=== PATIENT | male | born 1965 | race Caucasian/White ===

== ENCOUNTER → 2017-11-08 | Outpatient (CLI) | payer BC ==
--- NOTE | 2017-11-08 12:49 | Diagnostic Imaging Report ---
INDICATION: Fall with back pain. TECHNIQUE: AP and lateral views of the lumbar spine were obtained. FINDINGS: The lumbar vertebrae are normal in height and alignment. There is no fracture or subluxation. The disc spaces are normal in height. IMPRESSION: Negative lumbar spine. Dictated by: Dictated on workstation # [id number]
== END ==
LOC: RAD 09:59
PROVIDERS: ATTEND Family Medicine
DX: M54.16 Radiculopathy, lumbar region (principal); W19.XXXA Unspecified fall, initial encounter
CPT/HCPCS: 72100

== ENCOUNTER 2021-04-10 09:44 | Emergency (ER) | payer BC ==
[~2021-04-10] VITALS: Ht 177 cm; Wt 77.1 kg
--- NOTE | 2021-04-10 10:03 | ED Lower Extremity ---
General Stated Complaint: R LEG PAIN Source: patient Exam Limitations: no limitations History of Present Illness Date Seen by Provider: Apr 10, 2021 Time Seen by Provider: 09:50 Initial Comments Patient is a 55-year-old male who presents to the emergency department today with a chief complaint of right lower extremity pain. Patient has a history of muscular dystrophy and is wheelchair-bound but is able to stand for transfers. Patient states that he was trying to transfer out of his wheelchair last night when his right leg gave out and he fell to the ground. Patient states that he fell onto his right leg. He states he has had some proximal outer right lower extremity pain just below the knee since the fall. No other complaints of injury. Did not hit his head or have a loss of consciousness. No hip pain back pain or neck pain. Denies numbness to the right lower extremity. Tender to palpation in the right lower leg just distal to the knee on the lateral aspect. All other review of systems reviewed and negative except as stated above. Onset: yesterday Pain/Injury Location: right leg, right knee Method of Injury: fell Modifying Factors: Improves With Immobilization; Worse With Movement Allergies and Home Medications Patient Home Medication List Home Medication List Reviewed: Yes Review of Systems Constitutional: see HPI Respiratory: no symptoms reported Cardiovascular: no symptoms reported Gastrointestinal: no symptoms reported Genitourinary: no symptoms reported Musculoskeletal: joint pain (right knee), other (RLE pain just distal to the knee on the lateral aspect) All Other Systems Reviewed Negative Unless Noted: Yes Physical Exam Vital Signs Vital Signs - First Documented 04/10/21 09:50 Temp 36.0 Pulse 82 Resp 18 B/P (MAP) 167/103 (124) Pulse Ox 96 O2 Delivery Room Air Capillary Refill : Height, Weight, BMI Height: '" Weight: lbs. oz. kg; BMI Method: General Appearance: WD/WN Cardiovascular: regular rate, rhythm Respiratory: normal breath sounds, no respiratory distress, no accessory muscle use Hips: bilateral hip non-tender Legs: left leg non-tender, left leg normal inspection, left leg normal range of motion, left leg no evidence of injury; right leg bone tenderness (lateral knee pain over the joint line and just distal; mild to moderate swelling noted just distal to the knee. no overlying erythema or ecchymoses) Knees: left knee non-tender, left knee normal inspection, left knee normal range of motion, left knee no evidence of injury; right knee bone tenderness (lateral joint line) Ankles: bilateral ankle non-tender, bilateral ankle normal inspection, bilateral ankle normal range of motion, bilateral ankle no evidence of injury Feet: bilateral foot non-tender, bilateral foot normal inspection, bilateral foot normal range of motion, bilateral foot no evidence of injury Neurologic/Psychiatric: alert, normal mood/affect Skin: normal color, warm/dry Progress/Results/Core Measures Results/Orders My Orders Orders - TOMASZ LARES MD Tibia/Fibula, Right, 2 Views (04/10/21 09:58) Knee, Right, 3 Views (04/10/21 09:58) Vital Signs/I&O 04/10/21 09:50 Temp 36.0 Pulse 82 Resp 18 B/P (MAP) 167/103 (124) Pulse Ox 96 O2 Delivery Room Air Diagnostic Imaging Diagonstic Imaging: Xray Comments [facility], [place] NAME: NORM GAXIOLA [facility] REC#: [id number] PT STATUS: REG ER : 1965 PHYSICIAN: TOMASZ LARES MD ADMIT DATE: 04/10/21/ER Signed Date of Exam:04/10/21 TIBIA/FIBULA, RIGHT, 2 VIEWS Indication: Right leg pain AP and lateral views of the right tibia-fibula show no fracture, dislocation or other acute abnormalities. IMPRESSION: Negative right tibia and fibula Dictated by: Dictated on workstation # [id number] Dict: 04/10/21 1052 Trans: 04/10/21 1053 [facility] [id number] Interpreted by: RASHEED TOLLIVER MD Electronically signed by: RASHEED TOLLIVER MD 04/10/21 1053 Departure Impression Primary Impression: Pain of right lower extremity Disposition: 01 HOME, SELF-CARE Condition: Stable Departure-Patient Inst. Decision time for Depature: 11:01 Referrals: EDEL POOL MD (PCP/Family) Primary Care Physician Patient Instructions: Contusion (DC) Add. Discharge Instructions: You can take [id number] Tylenol and/or ibuprofen as needed for pain. Alternate heat and ice to the right lower extremity at the area of most soreness. Follow-up with your primary care physician. Return to the emergency room for any new, concerning or emergent complaints. TOMASZ LARES MD Apr 10, 2021 10:03
--- NOTE | 2021-04-10 10:54 | Diagnostic Imaging Report ---
Indication: Right leg pain AP and lateral views of the right tibia-fibula show no fracture, dislocation or other acute abnormalities. IMPRESSION: Negative right tibia and fibula Dictated by: Dictated on workstation # [id number]
--- NOTE | 2021-04-10 10:54 | Diagnostic Imaging Report ---
EXAMINATION: Right knee radiographs, 3 views. COMPARISON: None. HISTORY: 55-year-old male, right knee pain. FINDINGS: There is no identified acute fracture. There is no knee joint effusion. There are vascular related calcifications. The joint spaces appear well preserved. There is no identified radiopaque foreign body. IMPRESSION: 1. Grossly unremarkable radiographs of the right knee. Dictated by: Dictated on workstation # [id number]
[2021-04-10 11:11] VITALS: BP 134/101
== END 2021-04-10 11:10 | disposition home or self-care (01) ==
LOC: EDUNIT# 09:44 → ER 09:47
DX: M79.661 Pain in right lower leg (principal)
CPT/HCPCS: 73562; 73590

== ENCOUNTER 2021-09-03 09:53 | Outpatient (CLI) | payer BC ==
[~2021-09-03] VITALS: Ht 177.8 cm; Wt 77.3 kg
[2021-09-03 10:05] VITALS: BP 136/89
[2021-09-03] MEDS ORDERED: ACETAMINOPHEN 500 MG TAB (TYLENOL) PO PRN (10:15)
[2021-09-03] MEDS ORDERED: ONDANSETRON 4 MG/2 ML (SDV) Z0FRAN IV PRN (10:15)
[2021-09-03] MEDS ORDERED: BAMLANIVIMAB 700 MG/ETESEVIMAB 1,400 MG IN NS IV ONE ×3 (10:15)
[2021-09-03] MEDS ORDERED: EPINEPHrine INJECTION 1 MG/ML AMP IM PRN (10:15)
[2021-09-03] MEDS ORDERED: diphenhydrAMINE 50 MG/ML INJ (BENADRYL) IV PRN (10:15)
[2021-09-03 11:15] VITALS: BP 150/94
== END 2021-09-03 11:18 | disposition home or self-care (01) ==
LOC: INFUSION 09:53
PROVIDERS: ATTEND Family Medicine
DX: U07.1 COVID-19 (principal)